=== PATIENT | male | born 1980 | race Caucasian/White ===

== ENCOUNTER 2017-02-03 18:24 | Emergency (ER) | payer SELFPAY ==
[~2017-02-03] VITALS: Ht 172.7 cm; Wt 59.0 kg
[2017-02-03] MEDS ORDERED: ACETAMINOPHEN 325 MG TAB PO ONE (19:15)
[2017-02-03] MEDS ORDERED: KETOROLAC TROMETH 60MG/2ML VIAL IM ONE (19:15)
[2017-02-03] MEDS ORDERED: METOCLOPRAMIDE HCL 10 MG TAB PO ONE (19:15)
[2017-02-03 19:35] LABS: Basophils # (auto) 0.1 uL; Basophils % (auto) 1.1 % (0.0-2.0); CONDITION AutoValidated; Eosinophils # (auto) 0 uL; Hematocrit 49.6 % (41.0-53.0); Hemoglobin 16.5 g/dL (13.5-17.5); Lymphocytes # (auto) 2.1 uL; Lymphocytes % (auto) 18.3 % (10.0-50.0); Mean Corpuscular Hemoglobin 29.4 pg (28.0-32.0); Mean Corpuscular Hgb Conc. 33.3 g/dL (32.0-36.0); Mean Corpuscular Volume 88.5 fL (80.0-100.0); Mean Platelet Volume 9.9 fL (7.4-10.4); Monocytes # (auto) 0.7 uL; Monocytes % (auto) 6.5 % (0.0-12.0); Neutrophils # (auto) 8.4 uL; Neutrophils % (auto) 74.1 % (37.0-80.0); Platelet Count (auto) 284 10^3/uL (140-450); Red Cell Distribution Width 13.9 % (11.6-16.0); White Blood Cell 11.4 10^3/uL (4.4-10.8)
[2017-02-03 19:47] LABS: Salicylate 3.4 mg/dL (2.8-20.0)
[2017-02-03 19:54] LABS: Albumin 4.3 g/dL (3.4-5.0); Alkaline Phosphatase 90 U/L (45-117); Anion Gap 7 (5-15); Aspartate Aminotransferase 11 U/L (15-37); BUN/Creatinine Ratio 10.1; Bilirubin, Total 0.4 mg/dL (0.2-1.0); Blood Urea Nitrogen 10 mg/dL (7-18); Calcium 9.9 mg/dL (8.5-10.1); Carbon Dioxide 28 mmol/L (21-32); Chloride 106 mmol/L (98-107); GFR African American 111 mL/min; GFR Non-African American 92 mL/min; Glucose 102 mg/dL (74-106); Potassium 4.4 mmol/L (3.5-5.1); Sodium 141 mmol/L (136-145); Total Protein 8.5 g/dL (6.4-8.2)
[2017-02-03 20:00] LABS: Acetaminophen < 2.0 ug/mL (10-30)
[2017-02-03] MEDS ORDERED: CYCLOBENZAPRINE HCL 10 MG TAB PO ONE ×2 (21:15→22:00)
[2017-02-03] MEDS ORDERED: SODIUM CHLORIDE 0.9% 1,000 ML IV ONE (21:15)
[2017-02-03 22:16] LABS: Urine Bilirubin Negative (Negative); Urine Blood Negative /uL (Negative); Urine Color Yellow (Yellow); Urine Glucose Normal (Normal); Urine Ketone 2+ (Negative); Urine Mucus FEW (None Seen); Urine Nitrite Negative (Negative); Urine RBC 2 /hpf (0 - 3); Urine Sperm PRESENT /hpf (None Seen); Urine Squamous Epithelial Cell FEW /hpf (<5)
[2017-02-03] MEDS ORDERED: MORPHINE SULFATE 4 MG/ML SYRG IV ONE (23:30)
[2017-02-03] MEDS ORDERED: ONDANSETRON HCL 4 MG/2 ML VIAL IV ONE (23:30)
[2017-02-04] MEDS ORDERED: IBUPROFEN 600 MG TAB PO ONE (07:56)
[2017-02-04] MEDS: IBUPROFEN 600 MG TAB PO PRN ×2 (08:01→23:53)
[2017-02-04] MEDS: GABAPENTIN 300 MG CAP PO SCH ×2 (11:25→22:00)
[2017-02-05] MEDS: GABAPENTIN 300 MG CAP PO SCH (11:08)
[2017-02-05] MEDS: IBUPROFEN 600 MG TAB PO PRN ×2 (11:08→11:09)
[2017-02-06] MEDS: GABAPENTIN 300 MG CAP PO SCH ×3 (01:05→22:58)
[2017-02-06 08:00] VITALS: BP 132/64
[2017-02-06] MEDS ORDERED: GABAPENTIN 300 MG CAP ONE ×2 (09:39→22:50)
[2017-02-06] MEDS ORDERED: IBUPROFEN 600 MG TAB PO ONE (13:08)
[2017-02-06] MEDS: IBUPROFEN 600 MG TAB PO PRN (14:51)
[2017-02-06] MEDS ORDERED: TEMAZEPAM 15 MG CAP PO PRN (21:00)
[2017-02-07] MEDS: GABAPENTIN 300 MG CAP PO SCH (11:07)
== END 2017-02-07 12:12 | disposition home or self-care (01) ==
LOC: ER 18:33
DX: G43.909 Migraine, unspecified, not intractable, without status migrainosus (principal); F41.9 Anxiety disorder, unspecified; F32.9 Major depressive disorder, single episode, unspecified; R45.851 Suicidal ideations; Z59.0 Homelessness; F17.210 Nicotine dependence, cigarettes, uncomplicated; F12.10 Cannabis abuse, uncomplicated; F20.9 Schizophrenia, unspecified
CPT/HCPCS: 36415; 70450; 80053; 80307; 80329; 81001; 84484; 85025; 93005; 96361; 96374; 96375; 99285; J2270; J2405; J7030